=== PATIENT | female | born 1935 | race Caucasian/White ===

== ENCOUNTER 2016-10-25 20:34 | Emergency (ER) | payer MEDICARE, OTHER ==
[2016-10-25 21:35] VITALS: BP 151/72
[2016-10-25] MEDS ORDERED: cefTRIAXone 1 GM Vial IM ONE (22:32)
--- NOTE | 2016-10-25 22:36 | EDM.PDOC ---
[id number]: NAUSEA/FLANK PAIN Time Seen by Provider: 10/25/16 21:45 Source of Information: Reports: Patient, Family History Limitations: Reports: No Limitations - History of Present Illness INITIAL COMMENTS - FREE TEXT/NARRATIVE: 81-year-old female with only one kidney after nephrectomy for kidney cancer presents with lower back pain, fever, nausea and vomiting and increased urinary frequency for the past 24 hours. The left lower back has been bothering her off and on for 2 weeks but it's musculoskeletal, hurts with movement and worse after sitting for extended periods of time. She had emesis in route to the hospital. Onset: Today Severity: Moderate Associated Symptoms: Reports: Fever/Chills, Other (Back pain) - Related Data Allergies Allergy/AdvReac Type Severity Reaction Status Date / Time Iodinated Contrast- Oral and Allergy Hives Verified 10/25/16 21:25 IV Dye morphine Allergy Vomiting Verified 10/25/16 21:25 Home Meds: Home Meds Sertraline [Zoloft] 1 tab PO DAILY 10/25/16 [History] Ursodiol 1 tab PO BID 10/25/16 [History] atorvaSTATin [Lipitor] 1 tab PO DAILY 10/25/16 [History] Past Medical History - Past Surgical History GI Surgical History: Reports: Cholecystectomy Female Surgical History: Reports: Nephrectomy Social & Family History - Tobacco Use Smoking Status *Q: Never Smoker ED ROS GENERAL - Review of Systems Review Of Systems: See Below Constitutional: Reports: Fever, Chills, Malaise Respiratory: Denies: Shortness of Breath Cardiovascular: Denies: Chest Pain GI/Abdominal: Reports: Nausea, Vomiting. Denies: Abdominal Pain Musculoskeletal: Reports: Back Pain Skin: Reports: No Symptoms Neurological: Reports: No Symptoms ED EXAM, GENERAL - Physical Exam Exam: See Below Exam Limited By: No Limitations General Appearance: Alert, No Apparent Distress Respiratory/Chest: No Respiratory Distress, Lungs Clear Cardiovascular: Regular Rate, Rhythm GI/Abdominal: Soft, Non-Tender Back Exam: Other (She has some point tenderness just above the left SI joint into the left lumbar area) Neurological: Alert, Oriented Psychiatric: Normal Affect, Normal Mood Skin Exam: Warm, Dry Course - Vital Signs Last Recorded V/S: Last Vital Signs Temp 99.9 F 10/25/16 21:34 Pulse 66 07/02/17 21:34 Resp 14 10/25/16 21:34 BP 151/72 H 10/25/16 21:34 Pulse Ox 97 10/25/16 21:34 - Orders/Labs/Meds Labs: Laboratory Tests 10/25/16 10/25/16 10/25/16 Range/Units 21:57 22:12 22:16 WBC 12.9 H (4.5-11.0) K/uL RBC 3.88 (3.30-5.50) M/uL Hgb 12.6 (12.0-15.0) g/dL Hct 37.5 (36.0-48.0) % MCV 97 (80-98) fL MCH 33 H (27-31) pg MCHC 34 (32-36) % Plt Count 268 (150-400) K/uL Neut % (Auto) 81 H (36-66) % Lymph % (Auto) 8 L (24-44) % Stanley % (Auto) 10 H (2-6) % Eos % (Auto) 0 L (2-4) % Baso % (Auto) 0 (0-1) % Sodium 136 L (140-148) mmol/L Potassium 4.1 (3.6-5.2) mmol/L Chloride 100 (100-108) mmol/L Carbon Dioxide 26 (21-32) mmol/L Anion Gap 14.1 H (5.0-14.0) mmol/L BUN 18 (7-18) mg/dL Creatinine 1.0 (0.6-1.0) mg/dL Est Cr Clr Drug Dosing 35.88 mL/min Estimated GFR (MDRD) 53 L (>60) Glucose 144 H (74-106) mg/dL Calcium 9.9 (8.5-10.1) mg/dL Urine Color Yellow Urine Appearance Slightly cloudy Urine pH 5.0 (4.5-8.0) Ur Specific Cecil 1.015 (1.008-1.030) Urine Protein 30 H (NEGATIVE) mg/dL Urine Glucose (UA) Normal (NEGATIVE) mg/dL Urine Ketones 15 H (NEGATIVE) mg/dL Urine Occult Blood Moderate (NEGATIVE) Urine Nitrite Negative (NEGATIVE) Urine Bilirubin Negative (NEGATIVE) Urine Urobilinogen Normal (NORMAL) mg/dL Ur Leukocyte Esterase Moderate (NEGATIVE) Urine RBC 20-30 H (0-5) Urine WBC 75-100 H (0-5) Ur Epithelial Cells Few Amorphous Sediment Not seen Urine Bacteria Moderate Urine Mucus Not seen Meds: Medications Discontinued Medications Generic Name Dose Route Start Last Admin Trade Name Emily PRN Reason Stop Dose Admin Ceftriaxone Sodium 1 gm 10/25/16 22:32 10/25/16 22:53 Rocephin IM 10/25/16 22:33 1 gm ONETIME ONE Administration Lidocaine HCl Confirm 10/25/16 22:39 10/25/16 22:54 Xylocaine-Mpf 1% Administered 10/25/16 22:40 5 ml Dose Administration 5 ml .ROUTE .STK-MED ONE - Re-Assessments/Exams Free Text/Narrative Re-Assessment/Exam: 10/25/16 22:35 A UA was obtained which was markedly abnormal, 75-100 WBCs and many bacteria. A culture was initiated. CBC and BMP were reassuring, creatinine 1.0. Patient was given 1 g of Rocephin IM and started on 100 mg of Macrobid twice daily for 7 days. Can return if symptoms worsen despite treatment. Departure - Departure Time of Disposition: 22:54 Disposition: Home, Self-Care 01 Condition: Good Clinical Impression: UTI, Urinary tract infectious disease - Discharge Information Instructions: Urinary Tract Infection, Adult, [id number] Referrals: PCP,None [Primary Care Provider] - Forms: ED Department Discharge Care Plan Goals: Take antibiotic twice daily for 7 days starting tonight. Drink lots of water and increase activity as tolerated, return anytime if worsening such as vomiting and unable to take the medication, persistent fever or worsening pain.
== END 2016-10-25 22:55 | disposition home or self-care (01) ==
LOC: JP.ED 20:34
DX: N39.0 Urinary tract infection, site not specified (principal); Z90.49 Acquired absence of other specified parts of digestive tract; Z90.5 Acquired absence of kidney; Z79.899 Other long term (current) drug therapy; Z88.5 Allergy status to narcotic agent; Z91.041 Radiographic dye allergy status
CPT/HCPCS: 36415; 80048; 81001; 85025; 96372; 99284; J0696; 99283